=== PATIENT | female | born 1990 | race Caucasian/White ===

== ENCOUNTER 2023-09-26 09:31 | Inpatient (IN) | payer OTHER ==
[~2023-09-26] VITALS: Ht 160 cm; Wt 87.5 kg
[2023-09-26] MEDS ORDERED: BUPIVACAINE-MPF 0.5% 30 ML VIAL INJ ONE (10:47)
[2023-09-26] MEDS ORDERED: ACETAMINOPHEN 100 ML IV ONE (11:26)
[2023-09-26] MEDS ORDERED: fentaNYL citrate 0.05 MG/ML VIAL ONE (11:28)
[2023-09-26] MEDS ORDERED: MIDAZOLAM 2 MG/2 ML VIAL ONE (11:28)
[2023-09-26] MEDS ORDERED: PROPOFOL 200 MG/20 ML VIAL IV ONE (11:41)
[2023-09-26] MEDS ORDERED: DEXAMETHASONE 4 MG/ML VIAL ONE ×2 (11:42)
[2023-09-26] MEDS ORDERED: SUCCINYLCHOLINE CHLORIDE 200 MG/10 ML VIAL IVP ONE (11:42)
[2023-09-26] MEDS ORDERED: ROCURONIUM 50 MG/5 ML VIAL IV ONE (11:42)
[2023-09-26] MEDS ORDERED: ONDANSETRON 4 MG/2 ML VIAL ONE ×2 (11:42)
[2023-09-26] MEDS: ceFAZolin 2,000 MG VIAL ONE (11:51)
[2023-09-26] MEDS: BUPIVACAINE-MPF 0.25% 30 ML VIAL INJ ONE (11:51)
[2023-09-26] MEDS ORDERED: KETOROLAC 30 MG/ML VIAL ONE (11:58)
[2023-09-26] MEDS ORDERED: SUGAMMADEX SODIUM 200 MG/2 ML VIAL IV ONE ×2 (12:04→12:05)
[2023-09-26] MEDS ORDERED: diphenhydrAMINE 50 MG/ML VIAL IVP PRN (12:20)
[2023-09-26] MEDS ORDERED: ONDANSETRON 4 MG/2 ML VIAL IVP PRN (12:20)
[2023-09-26] MEDS: HYDROmorphone PFS 2 MG/ML SYR ONE (12:27)
[2023-09-26] MEDS: HYDROmorphone 1 MG/ML AMP IVP PRN (12:37)
== END 2023-09-26 13:30 | disposition home or self-care (01) | DRG 513 ==
LOC: MMU 09:31 → EDSTATUS 11:30
PROVIDERS: ADMIT Obstetrics & Gynecology; ATTEND Obstetrics & Gynecology
PROC: 0UB00ZZ Excision of Right Ovary, Open Approach (ICD-10-PCS; principal; 2023-09-26 11:30)
DX: D27.0 Benign neoplasm of right ovary (principal); Z79.899 Other long term (current) drug therapy
CPT/HCPCS: J0330; J1100; J1170; J1885; J2250; J2405; J2704; J3010; J3490